=== PATIENT | female | born 1970 | race Caucasian/White ===

== ENCOUNTER 2021-06-08 13:28 | Outpatient (REF) | payer OTHER, SELFPAY ==
--- NOTE | ~2021-06-08 | XR_ITS ---
EXAMINATION: XR SHOULDER, LEFT CLINICAL INFORMATION: Left shoulder injury COMPARISON: None TECHNIQUE: AP external rotation, Grashey, scapular Y, and axillary views of the left shoulder. FINDINGS: The bones and soft tissues are normal. No fracture. Glenohumeral and acromioclavicular alignment is anatomic with normal joint space. Mild calcific tendinopathy of the rotator cuff. XR/XR shoulder LT min 2V IMPRESSION: Mild rotator cuff tendinopathy.
== END 2021-06-08 13:29 | disposition home or self-care (01) ==
LOC: HO.HMGCX 13:28
PROVIDERS: PCP Internal Medicine; Visit Provider Internal Medicine
DX: S43.402A Unspecified sprain of left shoulder joint, initial encounter (principal); X58.XXXA Exposure to other specified factors, initial encounter; Y93.9 Activity, unspecified; Y92.9 Unspecified place or not applicable; Y99.9 Unspecified external cause status
CPT/HCPCS: 73030

== ENCOUNTER 2021-09-12 06:23 | Outpatient (REF) | payer OTHER, SELFPAY ==
[2021-09-12 11:09] LABS: MANUAL DIFF FLAG NO
[2021-09-12 11:23] LABS: Basophils Absolute Auto 0.1 X10*3/uL (0.0-0.2); Basophils Percent Auto 0.7 % (0-2); Eosinophils Absolute Auto 0.3 X10*3/uL (0.0-0.4); Eosinophils Percent Auto 4.2 % (0-4); Hemoglobin 14.6 g/dl (12.0-16.0); Imm Gran Abs Auto 0.02 X10*3/uL (0.00-0.03); Imm Gran Pct Auto 0.3 % (0.0-0.4); Lymphocytes Absolute Auto 2.3 X10*3/uL (1.2-4.9); Lymphocytes Percent Auto 33.4 % (20-40); Mean Corpuscular HGB Conc 33.2 g/dl (31.0-35.0); Mean Corpuscular Hemoglobin 29.3 pg (27.0-33.0); Mean Corpuscular Volume 88.2 fL (80.0-98.0); Mean Platelet Volume 10.1 fL (9.4-12.3); Monocytes Absolute Auto 0.5 X10*3/uL (0.1-1.2); Monocytes Percent Auto 6.6 % (2-11); Neutrophils Absolute Auto 3.8 x10*3/uL (2.0-8.3); Neutrophils Percent Auto 54.8 % (45-73); Platelet Count 306 X10*3/uL (160-400); Red Blood Count 4.99 X10*6/uL (4.20-5.50); Red Cell Distribution Width 11.8 % (11.0-16.0); White Blood Count 6.9 X10*3/uL (4.8-10.8)
[2021-09-12 11:28] LABS: Alanine Aminotransferase 54 U/L (0-31); Albumin Level 4.3 g/dL (3.5-5.0); Alkaline Phosphatase 58 U/L (39-117); Anion Gap 14 (12-20); Aspartate Amino Transferase 36 U/L (5-31); Bilirubin Total 0.8 mg/dL (0.0-1.0); Blood Urea Nitrogen 14 mg/dL (9-16); Calcium 9.5 mg/dL (8.4-10.2); Carbon Dioxide 23 mmol/L (22-29); Chloride 106 mmol/L (96-108); Cholesterol 199 mg/dL; Estimated Glomerular Filt Rate > 60; Glucose Fasting 102 mg/dL (60-99); HDL Cholesterol 55 mg/dL; LDL Cholesterol Calculated 118 mg/dl; Potassium 4.6 mmol/L (3.3-5.1); Sodium 138 mmol/L (135-145); Total Protein 7.3 g/dL (6.5-8.0); Triglycerides 130 mg/dL
[2021-09-12 11:54] LABS: TSH reflex Free T4 2.69 uIU/mL (0.32-4.0)
[2021-09-12 11:56] LABS: Vitamin B12 525 pg/mL (200-900)
[2021-09-16 12:41] LABS: Vitamin D 25-OH, D2 <4 ng/mL; Vitamin D 25-OH, D3 24 ng/mL; Vitamin D 25-OH, Total 24 ng/mL (30-100)
== END 2021-09-12 06:24 | disposition home or self-care (01) ==
LOC: HO.HMGCLDS 06:23
PROVIDERS: Visit Provider Internal Medicine
DX: Z00.01 Encounter for general adult medical examination with abnormal findings (principal); M54.12 Radiculopathy, cervical region; R03.0 Elevated blood-pressure reading, without diagnosis of hypertension; R20.2 Paresthesia of skin; E66.09 Other obesity due to excess calories
CPT/HCPCS: 36415; 80053; 80061; 82306; 82607; 84443; 85025

== ENCOUNTER 2021-10-01 13:33 | Outpatient (REF) | payer OTHER, SELFPAY ==
--- NOTE | ~2021-10-01 | MM_ITS ---
EXAMINATION: MM SCREENING DIGITAL BREAST TOMOSYNTHESIS, BILATERAL CLINICAL INFORMATION: Screening. Asymptomatic. The lifetime risk of breast cancer based on the Tyrer-Cuzick Model is 9%. COMPARISON: Outside mammography: 10/06/2017, 11/20/2012 ([place]). TECHNIQUE: Digital breast tomosynthesis is performed in both the craniocaudal and mediolateral oblique views along with computer-aided detection (CAD). Synthesized 2D images are generated from the tomosynthesis. FINDINGS: There are scattered areas of fibroglandular density (ACR BI-RADS breast composition Category b). There are no significant masses, abnormal calcifications, or other abnormalities. Breast tissue composition borders on heterogeneously dense. Parenchymal pattern is similar to prior outside exams. No developing density or architectural abnormality. The axilla and skin contours are unremarkable. MM/MM tomosynthesis screening BI IMPRESSION: No mammographic evidence of malignancy. ASSESSMENT: BI-RADS 1: Negative RECOMMENDATION: Routine annual mammography screening. This patient's information was entered into a reminder system with a target due date for their next mammogram.
== END 2021-10-01 13:34 | disposition home or self-care (01) ==
LOC: HO.MAMMO 13:33
PROVIDERS: PCP Internal Medicine; Visit Provider Internal Medicine
DX: Z12.31 Encounter for screening mammogram for malignant neoplasm of breast (principal)
CPT/HCPCS: 77063; 77067

== ENCOUNTER 2022-05-16 08:20 | Outpatient (REF) | payer OTHER, SELFPAY ==
--- NOTE | ~2022-05-16 | XR_ITS ---
EXAMINATION: XR CHEST CLINICAL INFORMATION: Pleurodynia. COMPARISON: July 26, 2009. TECHNIQUE: 2 views of the chest were obtained. FINDINGS: No significant abnormality is noted involving the heart, lungs, mediastinum, bony thorax or soft tissues. XR/XR chest 2V IMPRESSION: Unremarkable examination.
== END 2022-05-16 08:21 | disposition home or self-care (01) ==
LOC: HO.HMGCX 08:20
PROVIDERS: PCP Internal Medicine; Visit Provider Emergency Medicine
DX: R07.81 Pleurodynia (principal); R05.9 Cough, unspecified
CPT/HCPCS: 71046

== ENCOUNTER 2023-10-05 13:38 | Emergency (ER) | payer OTHER, SELFPAY ==
--- NOTE | ~2023-10-05 | XR_ITS ---
EXAMINATION: XR CHEST 2 VIEW CLINICAL INFORMATION: Pleuritic chest COMPARISON: 05/16/2022 TECHNIQUE: PA and lateral views of the chest obtained. FINDINGS: The lungs are clear. There are no pleural effusions. The cardiomediastinal silhouette is normal. XR/XR chest 2V IMPRESSION: No acute cardiopulmonary disease.
--- NOTE | 2023-10-05 13:52 | ECG_ITS ---
Test Reason : CHEST PAIN Blood Pressure : / mmHG Vent. Rate : 068 BPM Atrial Rate : 068 BPM P-R Int : 146 ms QRS Dur : 078 ms QT Int : 408 ms P-R-T Axes : 049 049 031 degrees QTc Int : 433 ms Normal sinus rhythm Low voltage QRS Possible Lateral infarct , age undetermined Abnormal ECG When compared with ECG of 26-JUL-2009 03:53, No significant change was found Referred By: Generic ED Physician Electronically Signed By:Christian Martinez
[2023-10-05 13:54] VITALS: BP 160/95; PULSE 75; RESP 18; TEMP 36.6; O2SAT 98; BMI 33.6
--- NOTE | 2023-10-05 14:16 | ED_ITS ---
HPI - Chest Pain General Chief Complaint: Chest Pain Stated Complaint: PERSISTENT CP X 3 DAYS PER EMS Time Seen by Provider: 10/05/23 13:56 History of Present Illness HPI narrative: The patient is a 53-year-old woman comes to the emergency room for evaluation of chest pain. She thinks the pain probably started 2 days ago on Thursday. She describes the pain as being associated with a mild cough and a production of a small amount of sputum. She feels mildly short of breath. She says the pain is worse when she takes a deep breath. She also has intermittent feelings of a flip flop sensation in her chest and in her abdomen. She says she has not eaten much because she is felt somewhat nauseated. She has had no pain or swelling in her legs. She has no history of blood clots. Related Data Previous Rx's ?Medication ?Instructions ?Recorded azithromycin 250 mg tablet See Rx Instructions PO .COMPLEX #6 11/15/21 tabs nirmatrelvir 300 mg (150 mg See Rx Instructions PO .COMPLEX 05/07/22 x2)-ritonavir 100 mg tablet,dose #30 tabs pack prednisone 10 mg tablet 10 mg PO DAILY #16 tabs 05/16/22 Allergies Allergy/AdvReac Type Severity Reaction Status Date / Time No Known Allergies Allergy Verified 10/05/23 13:58 Review of Systems 2 Review of Systems: Yes all other systems are reviewed and are negative FOR[facility]LY [facility] Past Medical History Medical History (Updated 10/05/23 @ 16:36 by Jose Giraldo MD) Cough Family History Family History Mother Cancer COPD (chronic obstructive pulmonary disease) Acute Crohn's disease Father Heart disease Other Mental health disorder Social History Social History Housing: House Patient Tobacco Use Status: Former Tobacco user Tobacco use type: Cigarette Years Smoked: 4 years Smoked in Last 30 Days: No Use of substances other than those prescribed or required for medical reasons: Yes Substance Use Type: Marijuana Advance Directives: No Advance Directives Information Provided: Yes Do you have a plan to hurt others: No Plan Patient : No Current occupational status: employed Cognitive needs: No Hearing needs: No Vision needs: No Physical Exam 2 Vital Signs: Vital Signs: Last Vital Signs Temp 98 F 10/05/23 13:54 Pulse 75 10/05/23 16:11 Resp 14 10/05/23 16:11 BP 142/85 H 10/05/23 16:11 Pulse Ox 98 10/05/23 16:11 O2 Del Method Room Air 10/05/23 16:11 BMI result Body Mass Index 33.6 Const: Other: The patient is awake and alert. She does not appear in obvious distress. HEENT: Other: Face is symmetrical. Mucous membranes moist. Eyes: Other: Pupils are round equal, conjunctivae clear Neck: Other: No JVD Chest: Other: No distinct chest wall tenderness Resp: Other: No obvious wheezes or crackles on exam Effort & Inspection: normal respiratory effort Auscultation: clear to auscultation bilaterally Cardio: Rate: regular rate Rhythm: regular rhythm Heart sounds: S1 normal heart sound present and S2 normal heart sound present GI: Other: The abdomen is soft and not significantly tender. No Salvador's sign. Skin: Other: The patient is face is somewhat reddish but I think this is chronic. Otherwise the skin is unremarkable Neuro: Other: The patient is awake and alert. Mental status is normal. Cranial nerves are grossly intact. She moves her extremities grossly normally. Extrem: Other: No calf swelling or tenderness, no peripheral edema, no asymmetry Medical Decision Making Medical Decision Making MDM Narrative: The patient is a 53-year-old female who comes to the emergency room for evaluation of approximately 48 hours of chest pain. Her EKG shows no definite acute ischemic changes. Her heart rate is 68. She is in sinus rhythm. She has an undetectable troponin. An undetectable BNP. CRP which is normal at 0.39. An undetectable D-dimer. She has a normal chest x-ray. My overall impression is that the patient is not having an acute coronary syndrome, pulmonary embolism, an acute lung process, or an acute intra-abdominal process. The patient is reassured that this may be some gastritis like discomfort or possibly chest wall discomfort of some kind. She will be discharged. Lab Data 10/05/23 15:51 10/05/23 15:51 Labs: Lab Results 10/05/23 10/05/23 Range/Units 15:50 15:51 WBC 8.6 (4.8-10.8) X10*3/uL RBC 4.92 (4.20-5.50) X10*6/uL Hgb 14.6 (12.0-16.0) g/dl Hct 41.4 (37.0-47.0) % MCV 84.1 (80.0-98.0) fL MCH 29.7 (27.0-33.0) pg MCHC 35.3 H (31.0-35.0) g/dl RDW 11.9 (11.0-16.0) % Plt Count 300 (160-400) X10*3/uL MPV 9.5 (9.4-12.3) fL Immature Gran % (Auto) 0.4 (0.0-0.4) % Neut % (Auto) 66.2 (45-73) % Lymph % (Auto) 24.8 (20-40) % Ida % (Auto) 7.3 (2-11) % Eos % (Auto) 0.6 (0-4) % Baso % (Auto) 0.7 (0-2) % Lymph # (Auto) 2.1 (1.2-4.9) X10*3/uL Ida # (Auto) 0.6 (0.1-1.2) X10*3/uL Eos # (Auto) 0.1 (0.0-0.4) X10*3/uL Baso # (Auto) 0.1 (0.0-0.2) X10*3/uL Abs Immat Gran (auto) 0.03 (0.00-0.03) X10*3/uL Absolute Neuts (auto) 5.7 (2.0-8.3) x10*3/uL Absolute Nucleated RBC 0.000 (0.0-0.012) X10*3/uL Nucleated RBC % (auto) 0.0 (0.0-0.2) /100WBC D-Dimer High Sensitivty < 150 NG/ML Sodium 142 (135-145) mmol/L Potassium 3.8 (3.3-5.1) mmol/L Chloride 108 (96-108) mmol/L Carbon Dioxide 23 (22-29) mmol/L Anion Gap 15 (12-20) BUN 9 (9-16) mg/dL Creatinine 0.77 (0.5-1.4) mg/dL Estim Creat Clear Calc 81.3 Estimated GFR > 60 Random Glucose 98 (60-115) mg/dL Calcium 9.6 (8.4-10.2) mg/dL Magnesium 2.4 (1.6-2.6) mg/dL Total Bilirubin 0.6 (0.0-1.0) mg/dL Direct Bilirubin 0.2 (0.0-0.5) mg/dL AST 26 (5-31) U/L ALT 49 H (0-31) U/L Alkaline Phosphatase 70 (39-117) U/L Troponin I High Sens < 2.7 (<3.5-17.0) ng/L C-Reactive Protein 0.39 (< or = 0.50) mg/dL B-Natriuretic Peptide < 10 (<100) pg/mL Total Protein 7.6 (6.5-8.0) g/dL Albumin 4.4 (3.5-5.0) g/dL Urine Color Yellow Urine Appearance Clear Urine pH 6.0 (5.0-9.0) Ur Specific [place] <= 1.005 (1.005-1.025) Urine Protein Negative (Neg-Trace) mg/dL Urine Glucose (UA) Negative (Negative) mg/dL Urine Ketones Negative (Negative) mg/dL Urine Blood Negative (Negative) Urine Nitrite Negative (Negative) Ur Leukocyte Esterase Small (1+) H (Negative) Urine RBC 0-2 (0-2) /HPF Urine WBC 6-10 H (0-5) /HPF Ur Squamous Epith Cells 3-5 (0-2) /HPF Urine Bacteria Trace (None Seen) Hyaline Casts 0-2 (0-2) /LPF Ethyl Alcohol < 10 mg/dL Influenza Type A (PCR) NEGATIVE (Negative) Influenza Type B (PCR) NEGATIVE (Negative) RSV RNA Qual (PCR) NEGATIVE (Negative) SARS-CoV-2 RNA (RT-PCR) NEGATIVE (Negative) Independent Interpretation I performed an independent interpretation of an: EKG Interpretation: EKG at 1352 shows normal sinus rhythm at 68 beats per minute. No definite acute ischemic changes. Discharge Plan Discharge Clinical Impression: Chest discomfort Patient Disposition: Home, Self-Care Additional Instructions: Your testing in the emergency room seems quite reassuring from the point of view of an acutely dangerous process. Please rest and take it easy. If you are feeling well enough to return to work tomorrow I think that is reasonable. Please keep your current follow up appointment with your regular doctor. Return to the emergency room if significantly worse. Prescriptions: No Action nirmatrelvir-ritonavir 300 mg (150 mg x 2)-100 mg tablets,dose pack See Rx Instructions PO .COMPLEX Qty: 30 0RF Rx Instructions: take TWO 150 mg tablets of nirmatrelvir with ONE 100 mg tablet of ritonavir twice daily for 5 days PO azithromycin 250 mg tablet See Rx Instructions PO .COMPLEX Qty: 6 0RF Rx Instructions: take 500 mg today (day 1), then 250 mg for 4 days (days 2-5) PO prednisone 10 mg tablet 10 mg PO DAILY Qty: 16 0RF Rx Instructions: Take 4 tabs p.o. daily x 3 days, take 2 tab x 2 days Stand Alone Forms: Work/School Release Print Language: [place] Citizen
[2023-10-05 15:55] LABS: MANUAL DIFF FLAG NO
[2023-10-05 15:58] LABS: Basophils Absolute Auto 0.1 X10*3/uL (0.0-0.2); Basophils Percent Auto 0.7 % (0-2); Eosinophils Absolute Auto 0.1 X10*3/uL (0.0-0.4); Eosinophils Percent Auto 0.6 % (0-4); Hematocrit 41.4 % (37.0-47.0); Hemoglobin 14.6 g/dl (12.0-16.0); Imm Gran Abs Auto 0.03 X10*3/uL (0.00-0.03); Imm Gran Pct Auto 0.4 % (0.0-0.4); Lymphocytes Absolute Auto 2.1 X10*3/uL (1.2-4.9); Lymphocytes Percent Auto 24.8 % (20-40); Mean Corpuscular HGB Conc 35.3 g/dl (31.0-35.0); Mean Corpuscular Hemoglobin 29.7 pg (27.0-33.0); Mean Corpuscular Volume 84.1 fL (80.0-98.0); Mean Platelet Volume 9.5 fL (9.4-12.3); Monocytes Absolute Auto 0.6 X10*3/uL (0.1-1.2); Monocytes Percent Auto 7.3 % (2-11); Neutrophils Absolute Auto 5.7 x10*3/uL (2.0-8.3); Neutrophils Percent Auto 66.2 % (45-73); Platelet Count 300 X10*3/uL (160-400); Red Blood Count 4.92 X10*6/uL (4.20-5.50); Red Cell Distribution Width 11.9 % (11.0-16.0); White Blood Count 8.6 X10*3/uL (4.8-10.8)
[2023-10-05 16:00] LABS: Appearance Urine Clear; Color Urine Yellow; Glucose Urine UA Negative (Negative); Leukocyte Esterase Urine Small (1+) (Negative); Nitrite Urine Negative (Negative); Specific Gravity - Urine <= 1.005 (1.005-1.025); UMIC TRIGGER UACC YES; Urine Blood Negative (Negative); Urine Ketones Negative (Negative); Urine Protein Negative (Neg-Trace)
[2023-10-05 16:05] LABS: Bacteria Urine Trace (None Seen); Hyaline Casts Urine 0-2 /LPF (0-2); RBC Urine 0-2 /HPF (0-2); UACC Culture Trigger YES
[2023-10-05 16:07] LABS: D Dimer High Sensitivity < 150 NG/ML
[2023-10-05 16:11] VITALS: BP 142/85; PULSE 75; RESP 14; O2SAT 98
[2023-10-05 16:14] LABS: Ethanol < 10 mg/dL
[2023-10-05 16:16] LABS: Alanine Aminotransferase 49 U/L (0-31); Albumin Level 4.4 g/dL (3.5-5.0); Alkaline Phosphatase 70 U/L (39-117); Anion Gap 15 (12-20); Aspartate Amino Transferase 26 U/L (5-31); Bilirubin Direct 0.2 mg/dL (0.0-0.5); Bilirubin Total 0.6 mg/dL (0.0-1.0); Blood Urea Nitrogen 9 mg/dL (9-16); C Reactive Protein 0.39 mg/dL (< or = 0.50); Calcium 9.6 mg/dL (8.4-10.2); Carbon Dioxide 23 mmol/L (22-29); Chloride 108 mmol/L (96-108); Creatinine Clr Calc Pharmacy 81.3; Estimated Glomerular Filt Rate > 60; Glucose Random 98 mg/dL (60-115); Magnesium 2.4 mg/dL (1.6-2.6); Potassium 3.8 mmol/L (3.3-5.1); Sodium 142 mmol/L (135-145); Total Protein 7.6 g/dL (6.5-8.0)
[2023-10-05 16:17] LABS: B Type Natriuretic Peptide < 10 pg/mL (<100)
[2023-10-05 16:29] LABS: Troponin-I High Sensitivity < 2.7 ng/L (<3.5-17.0)
[2023-10-05 16:33] LABS: Influenza A PCR NEGATIVE (Negative); Influenza B PCR NEGATIVE (Negative); Resp Syncy Virus RNA Qual PCR NEGATIVE (Negative); SARS COV2 PCR INHOUSE NEGATIVE (Negative)
[2023-10-05 17:00] VITALS: BP 142/85; PULSE 75; RESP 14; TEMP 36.6; O2SAT 98
== END 2023-10-05 17:01 | disposition home or self-care (01) ==
PROVIDERS: Emergency Provider Emergency Medicine
DX: R07.9 Chest pain, unspecified (principal); R05.9 Cough, unspecified; Z79.899 Other long term (current) drug therapy
CPT/HCPCS: 0241U; 36415; 71046; 80048; 80076; 80307; 81001; 81003; 83735; 83880; 84484; 85025; 85379; 86140; 87086; 93005; 99283; 99285

== ENCOUNTER → 2023-10-05 13:52 | Outpatient (BNV) | payer OTHER, SELFPAY | PROVIDERS: Emergency Provider Emergency Medicine; Visit Provider Internal Medicine Cardiovascular Disease | DX: R94.31 Abnormal electrocardiogram [ECG] [EKG] (principal) | CPT/HCPCS: 93010 ==

== ENCOUNTER 2023-10-23 14:41 | Outpatient (AMB) | payer OTHER, SELFPAY ==
--- NOTE | 2023-10-23 14:44 | A.OFFPC_ITS ---
Vital Signs 10/23/23 14:51 Height 5 ft 1 in Weight 168 lb BMI 31.7 BP 140/92 H Blood Pressure Location Rt brachial Position Sitting Pulse 91 Pulse Source Pulse Oximeter Pulse Oximetry (%) 98 Oxygen Delivery Method Room Air Intake Visit Reasons: PE - see comments Allergies No Known Allergies Allergy (Verified 10/23/23 14:51) Medication List - Last Reconciled 10/23/23 by Kelly Villanueva MD No Known Home Meds Tobacco use date assessed: 10/23/23 Dental Screening Dental Screen Date: 10/23/23 Did you have a dental visit in the last 12 months?: No Did you have a dental problem in the last 6 months where you did not have access to dental care?: No Was dental information given to patient?: Patient has dentist HPI PE - see comments HPI Details Patient is a 53-year-old female came in today for physical exam Last time she was seen was in 2021 Patient says that a lot is happening in her life She was recently in emergency room for panic like stayed After evaluation she was discharged She had labs done which I reviewed She has a history of right-sided lumbar radiculitis which is causing discomfort off and on I am starting her on gabapentin 300 mg at night that will help her with anxiety as well, patient has taken this medication before Her blood pressure is elevated not sure if it is because of anxiety or she has hypertension Last time in emergency room it was elevated as well Patient is to get blood pressure monitor and start monitoring her blood pressure, she will send me her readings in 1 week and then we will decide She is due for mammogram order placed Due for colonoscopy order placed Due for Pap smear order placed Patient will need a follow-up appointment in 3 months and physical exam in 1 year BMI is elevated need to lose weight PFSH Medical History Cough Family History Mother Cancer COPD (chronic obstructive pulmonary disease) Acute Crohn's disease Father Heart disease Other Mental health disorder Social History Housing: House Patient Tobacco Use Status: Former Tobacco user Tobacco use type: Cigarette Years Smoked: 4 years Substance Use Type: Marijuana Current occupational status: employed Cognitive needs: No Hearing needs: No Vision needs: Yes Questionnaire PHQ-9 Over the last 2 weeks, how often have you been bothered by any of the following problems? 1. Little interest or pleasure in doing things: several days 2. Feeling down, depressed, or hopeless: several days 3. Trouble falling or staying asleep, or sleeping too much: more than half the days 4. Feeling tired or having little energy: several days 5. Poor appetite or overeating: more than half the days 6. Feeling bad about yourself - or that you are a failure or have let yourself or your family down: not at all 7. Trouble concentrating on things, such as reading the newspaper or watching television: several days 8. Moving or speaking so slowly that other people could have noticed. Or the opposite - being so fidgety or restless that you have been moving around a lot more than usual: several days 9. Thoughts that you would be better off or of hurting yourself in some way: not at all Total score: 9 Depression Screening Interpretation: Negative Depression Screening Done: Yes 28808 - PHQ-9 Billing: Yes Source: Developed by Drs. Chase Grimes, Mary Jimenez, Martínez Wong and colleagues, with an educational toby from [employer]. Thrive Questionnaire Date Thrive assessed: 10/23/23 I am a: Patient What is your living situation today?: I have a steady place to live Within the past 12 months, did the food you bought not last and you didn't have the money to get more?: Never true Within the past 12 months, did you worry whether your food would run out before you got money to buy more?: Never true Do you have trouble paying for medicines?: No Do you have trouble getting transportation to medical appointments?: No Do you have trouble paying your heating and electricity bill?: No Do you have trouble taking care of your child, family member or friend?: No Do you have trouble with day-to-day activities such as bathing, preparing meals, shopping, managing finances, etc.?: No Are you currently unemployed and looking for a job?: No Are you interested in more education?: No Currently or been in a relationship where the following occur: no concerns reported and I choose not to answer this question THRIVE Score: 0 AUDIT C Alcohol Use Questionnaire (AUDIT-C) 1. How often do you have a drink containing alcohol?: 2-3 times a week 2. How many drinks containing alcohol do you have on a typical day when you are drinking?: 1 or 2 3. How often do you have six or more drinks on one occasion?: Never Total Score: 3 Score Reviewed/Action Taken: No PRATEEK-7 AMB Questionnaire PRATEEK-7 Feeling nervous, anxious, or on edge: 2 = More than half the days Not being able to stop or control worryin = More than half the days Worrying too much about different things: 2 = More than half the days Trouble relaxin = More than half the days Being so restless that it is hard to sit still: 3 = Nearly every day Becoming easily annoyed or irritable: 2 = More than half the days Feeling afraid as if something awful might happen: 1 = Several days Total PRATEEK-7 score (0-4 normal; 5-9 mild; 10-14 moderate; 15-21 severe): 14 Source: Developed by Drs. Chase Grimes, Mary Jimenez, Martínez Wong and colleagues, with an educational toby from [employer]. PRATEEK-7 Assessment Billing PRATEEK-7 Assessment Tool: PRATEEK-7 Assessment 89873 Review of Systems Const Denies chills, Denies fever(s) and Denies headache(s) Eyes Denies blurry vision ENT Denies headache(s), Denies nasal discharge, Denies nasal obstruction, Denies odynophagia and Denies sinus pain Card Denies chest pain at rest and Denies chest pain with activity Resp Denies cough and Denies hemoptysis GI Denies diarrhea, Denies odynophagia, Denies vomiting and Denies hematemesis Reports as per HPI Musc Denies abnormal gait Skin/Breast Reports as per HPI Neuro Denies Neuro-related abnormal movements, Denies Abnormal speech present, Denies abnormal gait, Denies headache(s) and Denies Sensory deficit (Neuro) Psych Denies mood swings and Denies paranoia Endo Reports as per HPI Vinod/Lymph Reports as per HPI Aller/Immun Reports as per HPI Physical exam (Primary Care) Vital Signs: Last Vital Signs Pulse 91 10/23/23 14:51 BP 140/92 H 10/23/23 14:51 Pulse Ox 98 10/23/23 14:51 Oxygen Delivery Method Room Air 10/23/23 14:51 BMI result Body Mass Index 31.7 Tobacco/Smoking Status: Tobacco use Status Tobacco use date assessed 10/23/23 10/23/23 14:53 Patient Tobacco Use Status Former Tobacco user 10/23/23 14:47 Tobacco use type Cigarette 10/23/23 14:47 PHQ-9: PHQ-9 Score PHQ-9: Total score 9 10/23/23 15:20 Depression Screening Interpretation: Negative Thrive Assessment: Date of Thrive Assessment Date Thrive assessed 10/23/23 10/23/23 15:20 Currently or been in a relationship where the following occur: no concerns reported and I choose not to answer this question Const General: cooperative, comfortable and no acute distress Orientation/consciousness: patient oriented x3 HENMT Head: Yes normocephalic and Yes atraumatic Eyes General: appearance normal, both eyes and all related structures Pupils: Equal, round and reactive pupils present EOM: EOMs intact bilaterally Neck Neck: Yes supple and No lymphadenopathy Thyroid: Thyroid normal Lymphatic: no lymphadenopathy noted Chest Breast/axilla palpation: normal palpation of the breasts Resp Effort & Inspection: normal respiratory effort and able to speak in complete sentences Auscultation: clear to auscultation bilaterally Cardio Heart sounds: S1 normal heart sound present and S2 normal heart sound present GI Palpation (GI): Soft to palpation and nontender Auscultation: normal bowel sounds General: Yes no CVA tenderness Back/Spine/Pelvis Back: no CVA tenderness Skin General skin exam: elasticity normal and turgor normal Neuro General: patient oriented x3 and gait normal Cranial nerves: Yes Equal, round and reactive pupils present Speech: No Abnormal speech present Sensory Exam: No Sensory deficit (Neuro) Coordination: tandem gait normal and Romberg test negative Extrem General: Yes normal exam except as noted and No edema Assessment and Plan Assessment & Plan (1) Encounter for general adult medical examination with abnormal findings: Code(s): Z00.01 - Encounter for general adult medical examination with abnormal findings (2) Elevated blood pressure reading: Code(s): R03.0 - Elevated blood-pressure reading, without diagnosis of hypertension (3) Right lumbar radiculitis: Code(s): M54.16 - Radiculopathy, lumbar region (4) Colon cancer screening: Code(s): Z12.11 - Encounter for screening for malignant neoplasm of colon (5) Obesity due to excess calories: Code(s): E66.09 - Other obesity due to excess calories Qualifiers: Obesity classification: adult class 1 (BMI 30 - 34.9) Serious obesity comorbidity presence: without serious comorbidity Body mass index: BMI 31.0- 31.9 Qualified Code(s): E66.09 - Other obesity due to excess calories; Z68.31 - Body mass index [BMI] 31.0-31.9, adult Plan Patient is a 53-year-old female came in today for physical exam Last time she was seen was in 2021 Patient says that a lot is happening in her life She was recently in emergency room for panic like stayed After evaluation she was discharged She had labs done which I reviewed She has a history of right-sided lumbar radiculitis which is causing discomfort off and on I am starting her on gabapentin 300 mg at night that will help her with anxiety as well, patient has taken this medication before Her blood pressure is elevated not sure if it is because of anxiety or she has hypertension Last time in emergency room it was elevated as well Patient is to get blood pressure monitor and start monitoring her blood pres sure, she will send me her readings in 1 week and then we will decide She is due for mammogram order placed Due for colonoscopy order placed Due for Pap smear order placed Patient will need a follow-up appointment in 3 months and physical exam in 1 year BMI is elevated need to lose weight Orders: Orders XR lumbar spine 2-3V Today M54.16 - Radiculopathy, lumbar region MM tomosynthesis screening BI Today Z12.31 - Encounter for screening mammogram for malignant neoplasm of breast Referrals Gastroenterology Referral Z12.11 - Encounter for screening for malignant neoplasm of colon [employer]IOR [employer]FORMATION [employer]ITY [employer]INEER Referral Z01.419 - Encounter for gynecological examination (general) (routine) without abnormal findings Medications: New [Blood pressure monitor] As directed 1 ea 0RF R03.0 - Elevated blood-pressure reading, without diagnosis of hypertension [Blood pressure monitor] As directed 1 ea 0RF R03.0 - Elevated blood-pressure reading, without diagnosis of hypertension gabapentin 300 mg PO BEDTIME 90 caps 0RF Coding Level of Care Code Est Pt Level 3 (93197) Est Pt Prev Care 40-64y(17508) Diagnoses Encounter for general adult medical examination with abnormal findings Z00.01 Elevated blood pressure reading R03.0 Right lumbar radiculitis M54.16 Colon cancer screening Z12.11 Class 1 obesity due to excess calories without serious comorbidity with body mass index (BMI) of 31.0 to 31.9 in adult E66.09; Z68.31 Obesity classification: adult class 1 (BMI 30 - 34.9) Serious obesity comorbidity presence: without serious comorbidity Body mass index: BMI 31.0-31.9 Additional Codes PRATEEK-7 Assessment Billing - PRATEEK-7 Assessment Tool: PRATEEK-7 Assessment 84297 ([id number])
[2023-10-23 14:51] VITALS: BP 140/92; PULSE 91; O2SAT 98; BMI 31.7
== END 2023-10-23 16:14 | disposition home or self-care (01) ==
PROVIDERS: PCP Internal Medicine; Visit Provider Internal Medicine
DX: Z00.01 Encounter for general adult medical examination with abnormal findings (principal); R03.0 Elevated blood-pressure reading, without diagnosis of hypertension; M54.16 Radiculopathy, lumbar region; Z12.11 Encounter for screening for malignant neoplasm of colon; E66.09 Other obesity due to excess calories; Z68.31 Body mass index [BMI] 31.0-31.9, adult
CPT/HCPCS: 99213; 99396

== ENCOUNTER 2023-11-19 09:06 | Outpatient (AMB) | payer OTHER, SELFPAY ==
--- NOTE | 2023-11-19 09:19 | A.OFFVIS_ITS ---
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 She hurt her back several years ago at [employer] and is just getting back into activity and has joined a [employer] team and they travel around 2 competitions. She is and when I questioned about sexual activity she says it has been a while and when I asked her if she had any issues with vaginal lubrication she said it was not a problem. She said she was having a panic attack because she did not like having these exams. She says she is up-to-date on her mammograms and has her next 1 coming up this month. She says she has high blood pressure but it is pretty much under control. [facility] Medical History HTN (hypertension) Cough Family History Mother Cancer COPD (chronic obstructive pulmonary disease) Acute Crohn's disease Father Heart disease Other Mental health disorder Social History Housing: House Patient Tobacco Use Status: Former Tobacco user Tobacco use type: Cigarette Years Smoked: 4 years Substance Use Type: Marijuana Current occupational status: employed Cognitive needs: No Hearing needs: No Vision needs: Yes Female Reproductive History Menstrual Age of Menarche: 12 Duration of menses: 3-5 days control method: none Total pregnancies: 0 History of abnormal pap smear: No (previous pap ,unsure date) Date of Mammogram: 10/01/21 (negative) History of abnormal mammogram: No Physical Exam Vital Signs: Last Vital Signs BP 128/70 11/19/23 09:20 BMI result Body Mass Index 32.3 Const General: healthy appearing, comfortable, no acute distress, well developed and alert Nutritional Appearance: average body habitus Orientation/consciousness: patient oriented x3 Limitations: no limitations HEENT Head: Yes normocephalic Neck Neck: Yes normal visual inspection Chest Chest palpation & inspection: normal inspection of the chest Breast/axilla inspection: normal inspection of the breasts and normal inspection of the axillae Breast/axilla palpation: normal palpation of the breasts and normal palpation of the axillae Resp Effort & Inspection: normal respiratory effort GI Inspection: Yes normal to inspection, No Abdominal wall edema and No distended Palpation (GI): Soft to palpation and nontender Other: Patient was tense. She said that previous examiners had not used a speculum before and I questioned this she said her last exam was at [facility]. Gentle exam using Kaela speculum was attempted speculum was gently and slowly inserted but not able to be opened and patient said stop. That she found it painful. Speculum was gently withdrawn and patient sat up. It was that that point on repeat questioning that the patient said that nothing had ever been inside before and when I clarified about my previous questioning about sexual activity, when she said it was not a problem. She meant that it was not a problem because she had never had any penetrating activity at all ever. Patient indicated that she did not think that she wanted to try again or would try again, I explained to her the reasons for cervical cancer screening and what the recommendations are. I did indicate that she would be lower risk because she has not had any sexual activity but that did not mean that she was no risk and so Pap smear still are in fact recommended. I inquired as to whether not she had ever had any issues with her periods or had any abdominal pain or difficulty and whether not she wanted to have it has a pelvic ultrasound and she declined. When I inquired as to what she was thinking when she need this exam she said she was told she needed to have it and so she came but she can not do it and does not intend to try again. External Female Exam: normal external appearance and normal appearance of the urethra Neuro General: patient oriented x3 Assessment & Plan Assessment & Plan (1) Well woman exam (no gynecological exam): Comment: Attempted patient stopped exam disclosed afterwards that she has never had any kind of penetration ever. Code(s): Z00.00 - Encounter for general adult medical examination without abnormal findings Category: Medical Plan Patient was tense. She said that previous examiners had not used a speculum before and I questioned this she said her last exam was at [facility]. Gentle exam using Kaela speculum was attempted speculum was gently and slowly inserted but not able to be opened and patient said stop. That she found it painful. Speculum was gently withdrawn and patient sat up. It was that that point on repeat questioning that the patient said that nothing had ever been inside before and when I clarified about my previous questioning about sexual activity, when she said it was not a problem. She meant that it was not a problem because she had never had any penetrating activity at all ever. Patient indicated that she did not think that she wanted to try again or would try again, I explained to her the reasons for cervical cancer screening and what the recommendations are. I did indicate that she would be lower risk because she has not had any sexual activity but that did not mean that she was no risk and so Pap smear still are in fact recommended. I inquired as to whether not she had ever had any issues with her periods or had any abdominal pain or difficulty and whether not she wanted to have it has a pelvic ultrasound and she declined. When I inquired as to what she was thinking when she need this exam she said she was told she needed to have it and so she came but she can not do it and does not intend to try again. -----Discussed in this visit the following: healthy balanced diet, regular and consistent exercise, getting recommended health screens, doing the best she can for her particular health concerns, kegel exercises, pap smear screening and followup recommendations, mammography screening and SBE, normal changes in cycles in her life stage--- . I shared with the patient that I did recommend that if she did schedule it again with any other provider she let them know that she never never never has had any pelvic exam and has not been able to proceed with 1, before the start. Coding Level of Care Code New Pt Prev Care 40-64y(52240) Diagnoses Well woman exam (no gynecological exam) Z00.00
[2023-11-19 09:20] VITALS: BP 128/70; BMI 32.3
== END 2023-11-19 10:27 | disposition home or self-care (01) ==
LOC: HO.HWSM 09:06
PROVIDERS: PCP Internal Medicine; Visit Provider Advanced Practice Midwife
DX: Z01.419 Encounter for gynecological examination (general) (routine) without abnormal findings (principal)
CPT/HCPCS: 99386

== ENCOUNTER → 2023-11-19 09:06 | Outpatient (BNVA) | payer OTHER, SELFPAY | PROVIDERS: PCP Internal Medicine; Visit Provider Advanced Practice Midwife ==